=== PATIENT | male | born 1960 | race Caucasian/White ===

== ENCOUNTER 2025-02-11 08:55 | Day surgery (SDC) | payer BC, SELFPAY ==
[2025-02-08 14:24] VITALS: BMI 29.5
[2025-02-11 09:35] VITALS: BP 125/73; PULSE 86; RESP 20; TEMP 36.3; O2SAT 98
--- NOTE | 2025-02-11 10:46 | P.PNANES_ITS ---
[facility] Disclaimer: The information contained in this section may have been updated after the patient was seen, as this information can be updated by other users. Medical History Hyperlipemia HTN (hypertension) Diverticulosis Surgical History H/O esophagogastroduodenoscopy History of colonoscopy History of cholecystectomy History of back surgery Family History (Updated 02/08/25 @ 14:24 by Katty Bryson RN) Other Diabetes Parkinson disease Social History (Updated 02/08/25 @ 14:16 by Katty Bryson RN) Smoking Status: Never smoker alcohol intake: never substance use type: denies use current occupational status: employed Travel in the last 8 weeks?: None caffeine: Yes [facility] Anesthesia Checklist Patient Identification Patient Identification: Verbal (Name & ) Structural Data Admitted From: Home Planned Operative Procedure/s: colonoscopy Consent for Planned Operative Procedure(s) Verified: Yes Airway Assessment Mallampati Score:: Class II C-Spine Mobility Assessed: Yes TMJ Mobility Assessed: Yes Dentition: Good Dentition Neurological Assessment Level of Consciousness: Awake, Alert and Appropriate Anesthesia Plan Anesthesia Risk discussed: Yes Anesthesia Plan: Verified ASA Class: II Anesthesia Type: MAC
--- NOTE | 2025-02-11 11:14 | EXP.HP ---
History of Present Illness *Admission Date: 02/11/25 *Reason for visit:: Personal history of adenomatous polyps *History of present illness: Mr. Aaron is a 64-year-old gentleman who is here for surveillance colonoscopy. His last colonoscopy was 5 years ago and he had adenomatous polyps removed. The examination is deemed medically necessary for surveillance colonoscopy. The patient has been seen, interviewed and examined prior to the procedure by both myself and the anesthesia provider. [facility] Disclaimer: The information contained in this section may have been updated after the patient was seen, as this information can be updated by other users. Medical History (Updated 02/11/25 @ 11:26 by Darrel Markham II, MD) Hyperlipemia HTN (hypertension) Diverticulosis Surgical History H/O esophagogastroduodenoscopy History of colonoscopy History of cholecystectomy History of back surgery Family History (Updated 02/08/25 @ 14:24 by Katty Bryson RN) Other Diabetes Parkinson disease Social History (Updated 02/11/25 @ 10:47 by Rodger Brandon CRNA) Smoking Status: Never smoker alcohol intake: never substance use type: denies use current occupational status: employed Travel in the last 8 weeks?: None caffeine: Yes Have you lived/traveled outside [place] in past 30 days?: No Contact w/someone who lives/traveled outside [place] past 30 days?: No Exposure to someone with infectious disease in past 14 days?: No Do you have a fever (greater than 100.4 F or 38 C)?: No Have you tested positive for COVID-19?: No Exposed to someone with COVID-19 in past 14 days?: No Do you have a sore throat?: No Do you have a cough?: No Do you have any weakness?: No Are you experiencing any nausea/vomitting?: No Do you have any diarrhea?: No Are you experiencing any unusual bleeding?: No Do you have any muscle aches/pain?: No Do you have any abdominal pain?: No Are you experiencing loss of taste or smell?: No Review of Systems Review of Systems Review of systems (narrative): Negative *Cardiovascular Comments: Negative *Gastrointestinal Comments: Negative *Genitourinary Comments: Negative *Musculoskeletal Comments: Negative *Neurologic Comments: Negative Meds Home Medications and Allergies Home Medications ?Medication ?Instructions ?Recorded ?Confirmed ?Type sodium,potassium,mag sulfates 17.5 See Rx Instructions PO .COMPLEX 01/28/25 Rx gram-3.13 gram-1.6 gram oral soln #354 mL (Suprep Bowel Prep Kit) atorvastatin 10 mg tablet (Lipitor) 10 mg PO DAILY 02/11/25 02/11/25 History lisinopril 10 mg tablet 10 mg PO DAILY 02/11/25 02/11/25 History semaglutide (weight loss) 1 mg/0.5 1 mg SQ WEEKLY 02/11/25 02/11/25 History mL subcutaneous pen injector (Wegovy) temazepam 7.5 mg capsule (Restoril) 7.5 mg PO HS 02/11/25 02/11/25 History New Prescriptions to Start Prescriptions: Allergies Allergy/AdvReac Type Severity Reaction Status Date / Time Penicillins Allergy Unknown Verified 02/08/25 14:56 allergy reaction Exam Data for Last 24 hours Vital signs and Labs for Last 24 Hours: Temp Pulse Resp BP Pulse Ox O2 Del Method 97.4 F L 86 20 125/73 98 Room Air 02/11/25 09:35 02/11/25 09:35 02/11/25 09:35 02/11/25 09:35 02/11/25 09:35 02/11/25 09:35 I & O for Last 24 hours: Intake & Output 02/08/25 02/09/25 02/10/25 02/11/25 23:59 23:59 23:59 23:59 Weight 218 lb *Routine HEENT Exam Head: Present normocephalic Eye: Present EOMI and PERRL ENT: Present mucous membranes moist *Routine Neck Exam Neck: Present supple *Routine Respiratory Exam Respiratory: Present CTA bilaterally *Routine Cardiovascular Exam Cardiovascular: Present RRR *Routine Abdominal Exam Abdominal: Present soft and normoactive bowel sounds; Absent tenderness *Routine Rectal Exam Rectal:: deferred *Routine Genitalia Exam Genitalia:: deferred *Routine Extremities Exam Extremities: Absent cyanosis, clubbing or edema *Routine Skin Exam Skin: Present warm; Absent rash *Routine Neurological Exam Neurological: Present alert and oriented X3 Assessment and Plan *Assessment and plan (1) Personal history of adenomatous and serrated colon polyps: Status: Acute Category: Medical Code(s): Z86.0101 - Personal history of adenomatous and serrated colon polyps Plan A/P: 1. Personal history of adenomatous colon polyps is the preprocedural diagnosis. The patient will be anesthetized/sedated using MAC sedation. The patient has been seen and examined. Cardiac and lung assessment prior to the examination is stable. Proceed with planned surveillance colonoscopy.
[2025-02-11 11:19] VITALS: O2SAT 98
--- NOTE | 2025-02-11 11:26 | HMH.PROCNOTE ---
[facility] Procedure Note Date: 02/11/25 Time: 11:44 Procedure Note:: Colonoscopy Procedure Report: Colonoscopy with cold snare polypectomy Endoscopist: Darrel Markham II, MD Referring physician: Benito Valle MD, [address] [place], [place] [address] Date of Procedure: February 11, 2025 Equipment: Olympus 190 variable stiffness pediatric colonoscope Sedation: MAC sedation Indication: Mr. Aaron is a 64-year-old gentleman who is here for follow-up surveillance colonoscopy. His last colonoscopy was 5 years ago and he had adenomatous colon polyps removed. The patient reports no abdominal pain, weight loss, rectal bleeding or family history of colon cancer. He has had some constipation since he has taken Wegovy. Procedure: Prior to the procedure, a history and physical exam was performed, and patient's medications and allergies were reviewed. The risks, benefits and alternatives of the sedation and procedure were discussed with the patient. All questions were answered and informed consent was obtained. The patient was brought to the procedure room. Patient identification and proposed procedure were verified by the physician and the nurse. The patient was placed in a left lateral decubitus position and the scope was passed under direct vision. Throughout the procedure, the patient's blood pressure, pulse, and oxygen saturations were monitored continuously. The colonoscopy was accomplished without difficulty. The patient tolerated the procedure well. Findings: On digital rectal examination there was normal rectal tone. There were no external hemorrhoids. The colonoscope was introduced through the anal canal to the rectum and advanced to the cecum. The ileocecal valve and appendiceal orifice were identified. The scope was advanced a short distance into the ileum which appeared grossly normal. The scope was then withdrawn into the colon. The cecum, ascending and transverse colon and mucosa were grossly normal. There were mildly scattered diverticuli throughout the descending and sigmoid colon (LEFT colon). There were 2 polyps (descending x 1 (3 mm) and sigmoid x 1 (3 mm)). Both of these were removed via cold snare polypectomy. The rectum itself was normal. Upon retroflexion within the rectum there were grade 2 internal hemorrhoids. The preparation was excellent throughout with [place] Preparation Score of 9. The cecal time was 12 minutes. Impression: 1. Diminutive colonic polyps x 2 2. Mild left-sided diverticulosis 3. Grade 2 internal hemorrhoids Plan: I will follow-up the polyp histology and recommend repeat surveillance colonoscopy again in 7 to 10 years based upon the pathology. I would encourage psyllium bulking fiber supplementation on a maintenance basis.
[2025-02-11 11:50] VITALS: BP 87/48; PULSE 93; RESP 16; TEMP 36.2; O2SAT 93
[2025-02-11 12:00] VITALS: BP 96/52; PULSE 83; RESP 18; O2SAT 99
[2025-02-11 12:10] VITALS: BP 115/68; PULSE 81; RESP 18; O2SAT 96
[2025-02-11 12:20] VITALS: BP 106/72; PULSE 80; RESP 18; O2SAT 96
== END 2025-02-11 12:30 | disposition home or self-care (01) ==
PROVIDERS: PCP Family Medicine; Visit Provider Internal Medicine Gastroenterology
PROC: 0DJD8ZZ Inspection of Lower Intestinal Tract, Via Natural or Artificial Opening Endoscopic (ICD-10-PCS; CPT 45378; principal; 2025-02-11 10:30)
DX: Z12.11 Encounter for screening for malignant neoplasm of colon (principal); Z86.0101 Personal history of adenomatous and serrated colon polyps; K59.00 Constipation, unspecified; K63.5 Polyp of colon; K57.30 Diverticulosis of large intestine without perforation or abscess without bleeding; K64.1 Second degree hemorrhoids
CPT/HCPCS: 45385